=== PATIENT | female | born 1945 | race Two or more races ===

== ENCOUNTER 2020-07-18 09:39 | Outpatient (CLI) | payer OTHER | END 2020-07-18 09:45 | disposition home or self-care (01) | LOC: LAB 09:39 | DX: G30.1 Alzheimer's disease with late onset (principal); E53.8 Deficiency of other specified B group vitamins; E03.8 Other specified hypothyroidism ==

== ENCOUNTER 2021-04-04 11:04 | Outpatient (CLI) | payer OTHER | END 2021-04-04 11:13 | disposition home or self-care (01) | LOC: RAD 11:04 | PROVIDERS: ATTEND Physical Medicine & Rehabilitation | DX: M54.2 Cervicalgia (principal); M54.59 Other low back pain; M17.0 Bilateral primary osteoarthritis of knee ==

== ENCOUNTER 2024-02-01 12:10 | Outpatient (CLI) | payer OTHER | END 2024-02-01 12:15 | disposition home or self-care (01) | LOC: MAMO-SONO 12:10 | PROVIDERS: ATTEND Obstetrics & Gynecology | DX: N64.4 Mastodynia (principal); Z12.31 Encounter for screening mammogram for malignant neoplasm of breast ==

== ENCOUNTER 2024-02-15 13:24 | Outpatient (CLI) | payer OTHER | END 2024-02-15 13:25 | disposition home or self-care (01) | LOC: NUCLEAR 13:24 | PROVIDERS: ATTEND Obstetrics & Gynecology | DX: M85.80 Other specified disorders of bone density and structure, unspecified site (principal); M81.0 Age-related osteoporosis without current pathological fracture ==

== ENCOUNTER → 2024-06-13 09:32 | Outpatient (CLI) | payer OTHER ==
[2024-06-13 10:07] LABS: HEMATOCRIT 37.5 % (36.0-45.00); HEMOGLOBIN 12.6 g/dL (12.0-15.00); MEAN CORPUSCULAR HEMOGLOBIN 27.9 pg (27.00-32.0); MEAN CORPUSCULAR HGB CONC 33.6 g/dl (32.0-36.0); PLATELET COUNT 238 K/uL (150-450); RED BLOOD COUNT 4.51 M/uL (4.00-6.00)
[2024-06-13 11:25] LABS: ALBUMIN 3.7 gm/dL (3.4-5.0); BILIRUBIN TOTAL 0.73 mg/dL (0.3-1.2); CALCIUM 9.2 mg/dL (8.5-10.1); CREATININE SERUM 1.23 mg/dL (0.55-1.02); GFR 42.23; GLOBULINA 3.7 G/DL (2.4-3.5); POTASSIUM 3.97 mEq/L (3.5-5.1); TOTAL PROTEIN 7.4 gm/dL (6.4-8.2); TSH 1.47 uIU/mL (0.358-3.74)
[2024-06-13 13:44] LABS: FOLIC ACID > 20.00 ng/ml (4.78-20)
[2024-06-15 10:05] LABS: a:g ratio 1.2 (0.7-1.7); alpha 1 g 0.3 g/dL (0.0-0.4); alpha 2 0.8 g/dL (0.4-1.0); beta g 1.2 g/dL (0.7-1.3); globulin t 3.3 g/dL (2.2-3.9); m spike Not Observed g/dL (Not Observed); prot total 7.1 g/dL (6.0-8.5)
== END | disposition home or self-care (01) ==
LOC: LAB 09:32
PROVIDERS: ATTEND Psychiatry & Neurology Neurology
DX: G60.8 Other hereditary and idiopathic neuropathies (principal); E03.8 Other specified hypothyroidism; E53.8 Deficiency of other specified B group vitamins